=== PATIENT | male | born 1935 | race Caucasian/White ===

== ENCOUNTER 2017-10-10 21:57 | Emergency (ER) | payer MEDICARE, OTHER ==
[2017-10-10] MEDS ORDERED: Doxycycline 100 MG Cap PO ONE (21:58)
[2017-10-10 23:46] VITALS: BP 157/71
[2017-10-11] MEDS ORDERED: Doxycycline 100 MG Cap PO ONE (00:29)
--- NOTE | 2017-10-11 00:35 | EDM.PDOC ---
ED HPI GENERAL MEDICAL PROBLEM - General Chief Complaint: Bite:Animal, Insect Stated Complaint: BIT BY BUG [phone] Time Seen by Provider: 10/11/17 00:20 Source of Information: Reports: Patient History Limitations: Reports: No Limitations - History of Present Illness INITIAL COMMENTS - FREE TEXT/NARRATIVE: This 81 yo male patient reports to the ED with an erythematous area to his right lower back. The patient reports that he removed a wood tick 2 days ago and noticed that he was having some swelling over the area since that time. The patient has not take any medications to relieve symptoms at this time. Onset Date: 10/10/17 Onset Time: 02:00 Duration: Constant, Getting Worse Location: Reports: Back (right lower back) Quality: Reports: Other Severity: Mild Improves with: Reports: None Worsens with: Reports: None Associated Symptoms: Reports: No Other Symptoms - Related Data Allergies Allergy/AdvReac Type Severity Reaction Status Date / Time king juice Allergy Hives Uncoded 10/10/17 23:39 Home Meds: Home Meds amLODIPine [Norvasc] 20 mg PO BEDTIME 10/31/14 [History] atorvaSTATin [Lipitor] 10 mg PO BEDTIME 10/31/14 [History] Aspirin 81 mg PO BEDTIME 05/12/15 [History] Calcium Carb/Mag Oxide/Cu/Zinc [Zwbazbi-Kajvppufc-Umsd Tab] 1 tab PO DAILY 05/12 [History] Furosemide 1 tab PO DAILY 10/10/17 [History] Past Medical History HEENT History: Reports: None Cardiovascular History: Reports: Bypass, High Cholesterol, Hypertension Other Cardiovascular History: heart surghury 1979, and 2003 Respiratory History: Reports: None Gastrointestinal History: Reports: None Genitourinary History: Reports: None Musculoskeletal History: Reports: None Neurological History: Reports: None Psychiatric History: Reports: None Endocrine/Metabolic History: Reports: None Hematologic History: Reports: None Immunologic History: Reports: None Oncologic (Cancer) History: Reports: None Dermatologic History: Reports: None - Infectious Disease History Infectious Disease History: Reports: Chicken Pox - Past Surgical History Head Surgeries/Procedures: Reports: None GI Surgical History: Reports: Appendectomy, Hernia, Inguinal Social & Family History - Family History Family Medical History: Noncontributory - Tobacco Use Smoking Status *Q: Unknown Ever Smoked - Caffeine Use Caffeine Use: Reports: Tea, Other Other Caffeine Use: cocoa - Recreational Drug Use Recreational Drug Use: No - Living Situation & Occupation Living situation: Reports: with Family Occupation: Retired ED ROS GENERAL - Review of Systems Review Of Systems: ROS reveals no pertinent complaints other than HPI. ED EXAM, ANIMAL BITE - Physical Exam Exam: See Below Exam Limited By: No Limitations General Appearance: Alert, WD/WN, No Apparent Distress Eye Exam: Bilateral Eye: EOMI, Normal Inspection, PERRL Ears: Normal External Exam, Normal Canal, Hearing Grossly Normal, Normal TMs Nose: Normal Inspection, Normal Mucosa, No Blood Throat/Mouth: Normal Inspection, Normal Lips, Normal Teeth, Normal Gums, Normal Oropharynx, Normal Voice, No Airway Compromise Head: Atraumatic, Normocephalic Neck: Normal Inspection, Supple, Non-Tender, Full Range of Motion Respiratory/Chest: No Respiratory Distress, Lungs Clear, Normal Breath Sounds, No Accessory Muscle Use, Chest Non-Tender Cardiovascular: Normal Peripheral Pulses, Regular Rate, Rhythm, No Edema, No Gallop, No JVD, No Murmur, No Rub GI/Abdominal: Normal Bowel Sounds, Soft, Non-Tender, No Organomegaly, No Distention, No Abnormal Bruit, No Mass (Male) Exam: Deferred Rectal (Males) Exam: Deferred Back Exam: Full Range of Motion Extremities: Normal Inspection, Normal Range of Motion, Non-Tender, Normal Capillary Refill, No Pedal Edema Neurological: Alert, Oriented, CN II-XII Intact, Normal Cognition, Normal Gait, Normal Reflexes, No Motor/Sensory Deficits Psychiatric: Normal Affect, Normal Mood Skin Exam: Other (The patient has an erythematous area over the area that he removed a wood tick. The erythematous area is approximately 3 cm in diameter in a circular shape around the bite. ) Lymphatic: No Adenopathy Course - Vital Signs Last Recorded V/S: Last Vital Signs Temp 36.9 C 10/10/17 23:42 Pulse 77 10/10/17 23:42 Resp 20 10/10/17 23:42 BP 157/71 H 10/10/17 23:42 Pulse Ox 98 10/10/17 23:42 - Orders/Labs/Meds Orders: Active Orders 24 hr Category Date Time Status Doxycycline [Vibramycin] Med 10/11/17 00:29 Once 100 mg PO ONETIME ONE Departure - Departure Time of Disposition: 00:33 Disposition: Home, Self-Care 01 Condition: Fair Clinical Impression: Tick bite of back Qualifiers: Encounter type: initial encounter Qualified Code(s): S30.860A - Insect bite ( nonvenomous) of lower back and pelvis, initial encounter; W57.XXXA - Bitten or stung by nonvenomous insect and other nonvenomous arthropods, initial encounter - Discharge Information Instructions: Tick Bite Information, Adult, Zfut-ts-Myvc Care Plan Goals: The patient was advised of the examination results during the visit. The patient was given an oral dose of Doxycycline while in the ED. The patient was discharged with a dose of Doxycycline to take in the morning and a script for Doxycycline (100 mg) #28 to take 1 by mouth 2 times per day for 14 days. If the patient has any additional symptoms or concerns, the patient should follow-up with his primary care facility or return to the emergency department. - My Orders Last 24 Hours: My Active Orders 10/11/17 00:29 Doxycycline [Vibramycin] 100 mg PO ONETIME ONE - Assessment/Plan Last 24 Hours: My Active Orders 10/11/17 00:29 Doxycycline [Vibramycin] 100 mg PO ONETIME ONE
[2017-10-11] MEDS ORDERED: Doxycycline 100 MG Cap ONE (00:37)
== END 2017-10-11 00:40 | disposition home or self-care (01) ==
LOC: DL.ED 21:57
DX: S30.860A Insect bite (nonvenomous) of lower back and pelvis, initial encounter (principal); E78.00 Pure hypercholesterolemia, unspecified; I10 Essential (primary) hypertension; Z79.82 Long term (current) use of aspirin; Z79.899 Other long term (current) drug therapy; W57.XXXA Bitten or stung by nonvenomous insect and other nonvenomous arthropods, initial encounter
CPT/HCPCS: 99281; A9270; 99282

== ENCOUNTER 2020-02-17 17:40 | Emergency (ER) | payer MEDICARE, OTHER ==
--- NOTE | 2020-02-17 18:45 | CT ---
PROCEDURE INFORMATION: Exam: CT Head Without Contrast Exam date and time: 02/17/2020 5:56 PM Age: 84 years old Clinical indication: Other: Covid; Additional info: Confusion TECHNIQUE: Imaging protocol: Computed tomography of the head without contrast. Radiation optimization: All CT scans at this facility use at least one of these dose optimization techniques: automated exposure control; mA and/or kV adjustment per patient size (includes targeted exams where dose is matched to clinical indication); or iterative reconstruction. COMPARISON: No relevant prior studies available. FINDINGS: Brain: Age related brain involution is present. No acute intracranial hemorrhage, mass effect, midline shift, or brain herniation. Diffuse subcortical and periventricular white matter hypodensities are most in favor with chronic small vessel disease. Cerebral ventricles: There is ex vacuo ventriculomegaly. Bones/joints: Unremarkable. No acute fracture. Paranasal sinuses: Visualized sinuses are unremarkable. No fluid levels. Mastoid air cells: Visualized mastoid air cells are well aerated. Vasculature: Intracranial atherosclerosis is present. Soft tissues: Unremarkable. IMPRESSION: Negative for acute intracranial pathology.
--- NOTE | 2020-02-17 18:47 | CT ---
PROCEDURE INFORMATION: Exam: CT Chest Without Contrast Exam date and time: 02/17/2020 5:56 PM Age: 84 years old Clinical indication: Other: Covid; Additional info: Covid + with increased confusion TECHNIQUE: Imaging protocol: Computed tomography of the chest without contrast. Radiation optimization: All CT scans at this facility use at least one of these dose optimization techniques: automated exposure control; mA and/or kV adjustment per patient size (includes targeted exams where dose is matched to clinical indication); or iterative reconstruction. COMPARISON: No relevant prior studies available. FINDINGS: Lungs: Moderate amount of patchy peripheral interstitial and ground-glass opacities throughout both lungs. No focal consolidation . Pleural space: Unremarkable. No pneumothorax. No pleural effusion. Heart: Unremarkable. No cardiomegaly. No pericardial effusion. Aorta: Unremarkable. No aortic aneurysm. Lymph nodes: Unremarkable. No enlarged lymph nodes. Bones/joints: Unremarkable. No acute fracture. Soft tissues: Unremarkable. IMPRESSION: Nonspecific patchy interstitial and ground-glass opacities in both lungs, most likely due to atypical viral pneumonia
[2020-02-17 18:55] LABS: ANION GAP 17.2 mEq/L (7-13); CHLORIDE,CL 100 mmol/L (98-107); SODIUM,NA 139 mmol/L (136-145)
[2020-02-17] MEDS ORDERED: Sodium Chloride 0.9% 1,000 ML IV SCH (19:30)
[2020-02-17] MEDS ORDERED: Ondansetron 4 MG/2 ML SDV IVPUSH ONE (19:30)
--- NOTE | 2020-02-17 19:32 | EDM.PDOC ---
ED HPI GENERAL MEDICAL PROBLEM - General Chief Complaint: Neuro Symptoms/Deficits Stated Complaint: DEHYDRATED, CONFUSED, COVID+ OCT. 4TH Time Seen by Provider: 02/17/20 19:27 Source of Information: Reports: Patient, Family History Limitations: Reports: No Limitations - History of Present Illness INITIAL COMMENTS - FREE TEXT/NARRATIVE: pt was admitted to [facility] for 5 days with pos covid. family noticed his mental status hadn't been normal with periods of confusion and unsteadiness and generally not behaving his normal self. also not wanting to eat of drink. also he was told his renal function wasn't good and does see kidney doc in [place]. states all his records are in [place] and he doctors there too. pt denies CP/SOB does have episodic cough. - Related Data Allergies Allergy/AdvReac Type Severity Reaction Status Date / Time alacepril Allergy Swollen Verified 02/17/20 18:41 Tongue king juice Allergy Hives Uncoded 10/10/17 23:39 Home Meds: Home Meds amLODIPine [Norvasc] 20 mg PO BEDTIME 10/31/14 [History] atorvaSTATin [Lipitor] 10 mg PO BEDTIME 10/31/14 [History] Aspirin 81 mg PO BEDTIME 05/12/15 [History] Calcium Carb/Mag Oxide/Cu/Zinc [Omkbfkp-Suryanffy-Uced Tab] 1 tab PO DAILY 05/12/15 [History] Furosemide 1 tab PO DAILY 10/10/17 [History] Past Medical History HEENT History: Reports: None Cardiovascular History: Reports: Bypass, High Cholesterol, Hypertension Other Cardiovascular History: heart surghury 1979, and 2003 Respiratory History: Reports: None Gastrointestinal History: Reports: None Genitourinary History: Reports: Chronic Renal Insuffiency Musculoskeletal History: Reports: None Neurological History: Reports: Other (See Below) Other Neuro History: muscle spasms Psychiatric History: Reports: None Endocrine/Metabolic History: Reports: None Hematologic History: Reports: None Immunologic History: Reports: None Oncologic (Cancer) History: Reports: None Dermatologic History: Reports: None - Infectious Disease History Infectious Disease History: Reports: Chicken Pox - Past Surgical History Head Surgeries/Procedures: Reports: None GI Surgical History: Reports: Appendectomy, Hernia, Inguinal Social & Family History - Family History Family Medical History: Noncontributory - Tobacco Use Tobacco Use Status *Q: Never Tobacco User - Caffeine Use Caffeine Use: Reports: Tea Other Caffeine Use: cocoa - Recreational Drug Use Recreational Drug Use: No - Living Situation & Occupation Living situation: Reports: with Family Occupation: Retired ED ROS GENERAL - Review of Systems Review Of Systems: Comprehensive ROS is negative, except as noted in HPI. ED EXAM, NEURO - Physical Exam Exam: See Below Exam Limited By: No Limitations General Appearance: Alert, WD/WN, Mild Distress, Other (general discomfort) Ears: Hearing Grossly Normal Throat/Mouth: Normal Voice, No Airway Compromise Head Exam: Atraumatic Neck: Non-Tender, Full Range of Motion Respiratory/Chest: No Respiratory Distress, Rhonchi Cardiovascular: Regular Rate, Rhythm GI/Abdominal: Soft, Non-Tender (Male) Exam: Deferred Rectal (Males) Exam: Deferred Neurological: Alert, Normal Mood/Affect, No Motor/Sensory Deficits, Oriented x 3 Psychiatric: Normal Affect, Normal Mood Skin Exam: Warm, Dry, Normal Color Course - Vital Signs Last Recorded V/S: Last Vital Signs Temp 36.8 C 02/17/20 19:39 Pulse 91 02/17/20 19:39 Resp 19 02/17/20 19:39 BP 157/75 H 02/17/20 19:39 Pulse Ox 95 02/17/20 19:39 - Orders/Labs/Meds Orders: Active Orders 24 hr Category Date Time Status EKG Documentation Completion [RC] STAT Care 02/17/20 17:44 Active CULTURE BLOOD [BC] Stat Lab 02/17/20 17:59 Received UA RFX DEBORAH AND CULT IF INDIC [URIN] Urgent Lab 02/17/20 17:44 Ordered Sodium Chloride 0.9% [Normal Saline] 500 ml Med 02/17/20 19:45 Active IV ASDIRECTED Medication Orders Sodium Chloride (Normal Saline) 500 mls @ 200 mls/hr IV ASDIRECTED MIKE Last Admin: 02/17/20 19:39 Dose: 200 mls/hr Documented by: ARTEMIO Labs: Laboratory Tests 02/17/20 02/17/20 02/17/20 Range/Units 17:59 17:59 17:59 WBC 10.0 (5.0-10.0) 10^3/uL RBC 4.77 (4.6-6.2) 10^6/uL Hgb 14.6 (14.0-18.0) g/dL Hct 42.7 (40.0-54.0) % MCV 89.5 (80-100) fL MCH 30.6 (27.0-34.0) pg MCHC 34.2 (33.0-35.0) g/dL Plt Count 265 D (150-450) 10^3/uL Neut % (Auto) 76.2 H (42.2-75.2) % Lymph % (Auto) 10.7 L (20.5-50.1) % [place] % (Auto) 11.7 H (2-8) % Eos % (Auto) 1.2 (1.0-3.0) % Baso % (Auto) 0.2 (0.0-1.0) % Add Manual Diff Yes Neutrophils % (Manual) 83 H (42-75) % Band Neutrophils % 0 % Lymphocytes % (Manual) 7 L (20-50) % Atypical Lymphs % 0 % Monocytes % (Manual) 7 (2-8) % Eosinophils % (Manual) 3 (1-3) % PT (9.0-12.0) SEC INR (0.9-1.2) Sodium 139 (136-145) mmol/L Potassium 4.2 (3.5-5.1) mmol/L Chloride 100 (98-107) mmol/L Carbon Dioxide 26 (21-32) mmol/L Anion Gap 17.2 H (7-13) mEq/L BUN 45 H (7-18) mg/dL Creatinine 2.67 H (0.70-1.30) mg/dL Est Cr Clr Drug Dosing 20.60 mL/min Estimated GFR (MDRD) 23 BUN/Creatinine Ratio 16.9 (No establ ref range) Glucose 138 H (74-99) mg/dL Lactic Acid 1.4 (0.4-2.0) mmol/L Calcium 9.0 (8.5-10.1) mg/dL Total Bilirubin 0.9 (0.2-1.0) mg/dL AST 37 (15-37) U/L ALT 31 (16-63) U/L Alkaline Phosphatase 97 (46-116) U/L Troponin I < 0.017 (0.000-0.056) ng/mL Total Protein 7.4 (6.4-8.2) g/dL Albumin 3.5 (3.4-5.0) g/dL Globulin 3.9 Albumin/Globulin Ratio 0.9 10/16/20 Range/Units 17:59 WBC (5.0-10.0) 10^3/uL RBC (4.6-6.2) 10^6/uL Hgb (14.0-18.0) g/dL Hct (40.0-54.0) % MCV (80-100) fL MCH (27.0-34.0) pg MCHC (33.0-35.0) g/dL Plt Count (150-450) 10^3/uL Neut % (Auto) (42.2-75.2) % Lymph % (Auto) (20.5-50.1) % [place] % (Auto) (2-8) % Eos % (Auto) (1.0-3.0) % Baso % (Auto) (0.0-1.0) % Add Manual Diff Neutrophils % (Manual) (42-75) % Band Neutrophils % % Lymphocytes % (Manual) (20-50) % Atypical Lymphs % % Monocytes % (Manual) (2-8) % Eosinophils % (Manual) (1-3) % PT 10.7 (9.0-12.0) SEC INR 1.1 (0.9-1.2) Sodium (136-145) mmol/L Potassium (3.5-5.1) mmol/L Chloride (98-107) mmol/L Carbon Dioxide (21-32) mmol/L Anion Gap (7-13) mEq/L BUN (7-18) mg/dL Creatinine (0.70-1.30) mg/dL Est Cr Clr Drug Dosing mL/min Estimated GFR (MDRD) BUN/Creatinine Ratio (No establ ref range) Glucose (74-99) mg/dL Lactic Acid (0.4-2.0) mmol/L Calcium (8.5-10.1) mg/dL Total Bilirubin (0.2-1.0) mg/dL AST (15-37) U/L ALT (16-63) U/L Alkaline Phosphatase (46-116) U/L Troponin I (0.000-0.056) ng/mL Total Protein (6.4-8.2) g/dL Albumin (3.4-5.0) g/dL Globulin Albumin/Globulin Ratio Meds: Medications Generic Name Dose Route Start Last Admin Trade Name Freq PRN Reason Stop Dose Admin Sodium Chloride 500 mls @ 200 mls/hr 02/17/20 19:45 02/17/20 19:39 Normal Saline IV 200 mls/hr ASDIRECTED MIKE Administration Discontinued Medications Generic Name Dose Route Start Last Admin Trade Name Freq PRN Reason Stop Dose Admin Sodium Chloride 1,000 mls @ 200 mls/hr 02/17/20 19:30 Normal Saline IV ASDIRECTED MIKE Ondansetron HCl 4 mg 02/17/20 19:30 02/17/20 19:37 Zofran IVPUSH 02/17/20 19:31 4 mg ONETIME ONE Administration - Re-Assessments/Exams Free Text/Narrative Re-Assessment/Exam: 02/17/20 19:[address] Abbott @ [facility] who kindly accepted pt. Departure - Departure Time of Disposition: 19:50 Disposition: DC/Tfer to Acute Hospital 02 Condition: Fair Clinical Impression: Pneumonia due to COVID-19 virus, Confusion, Renal insufficiency syndrome - Discharge Information Forms: Interfacility Transfer EMTALA Sepsis Event Note (ED) - Evaluation Sepsis Screening Result: No Definite Risk - Focused Exam Vital Signs: Vital Signs Temp Pulse Resp BP Pulse Ox 02/17/20 19:39 36.8 C 91 19 157/75 H 95 02/17/20 18:02 37.1 C 88 18 133/70 96 - My Orders Last 24 Hours: My Active Orders 02/17/20 19:45 Sodium Chloride 0.9% [Normal Saline] 500 ml IV ASDIRECTED - Assessment/Plan Last 24 Hours: My Active Orders 02/17/20 19:45 Sodium Chloride 0.9% [Normal Saline] 500 ml IV ASDIRECTED
[2020-02-17 19:40] VITALS: BP 157/75; PULSE 91
[2020-02-17] MEDS ORDERED: Sodium Chloride 0.9% 500 ML IV SCH (19:45)
== END 2020-02-17 20:38 ==
LOC: DL.ED 17:40
DX: U07.1 COVID-19 (principal); J12.89 Other viral pneumonia; R41.0 Disorientation, unspecified; E78.00 Pure hypercholesterolemia, unspecified; I12.9 Hypertensive chronic kidney disease with stage 1 through stage 4 chronic kidney disease, or unspecified chronic kidney disease; N18.9 Chronic kidney disease, unspecified; Z91.018 Allergy to other foods; Z79.82 Long term (current) use of aspirin; Z79.899 Other long term (current) drug therapy
CPT/HCPCS: 36415; 70450; 71250; 80053; 83605; 84484; 85025; 85610; 87040; 93005; 96374; 99285; J2405; J7040; 99284

== ENCOUNTER 2022-06-02 19:45 | Observation (INO) | payer MEDICARE, OTHER ==
[2022-06-02 20:32] LABS: ANION GAP 12.6 mEq/L (7-13)
[2022-06-02] MEDS ORDERED: Pantoprazole 40 MG Vial IVPUSH ONE (20:36)
[2022-06-02 21:10] LABS: CORONAVIRUS COVID-19 NAA NEGATIVE (NEGATIVE)
[2022-06-02] MEDS: Pantoprazole 40 MG in Sodium Chloride 0.9% 100 ML IV SCH (22:02)
[2022-06-02] MEDS ORDERED: Albuterol/Ipratropium 3.0-0.5 MG/3 ML Neb Soln NEB PRN (22:35)
[2022-06-02] MEDS ORDERED: Acetaminophen/HYDROcodone 325-5 MG Tab PO PRN (22:35)
[2022-06-02] MEDS ORDERED: Ondansetron 4 MG/2 ML SDV IVPUSH PRN (22:35)
[2022-06-02] MEDS ORDERED: Acetaminophen 325 MG Tab PO PRN (22:35)
[2022-06-02] MEDS ORDERED: Polyethylene Glycol 3350 Powder 17 GM Packet PO PRN (22:35)
[2022-06-02] MEDS ORDERED: HYDROmorphone 0.5 MG/0.5 ML Syringe IVPUSH PRN (22:35)
[2022-06-02] MEDS ORDERED: Magnesium Hydroxide 400 MG/5 ML Susp 30 ML Cup PO PRN (22:35)
[2022-06-02] MEDS ORDERED: Sodium Chloride 0.9% 10 ML Syringe FLUSH PRN (22:35)
[2022-06-02] MEDS ORDERED: Bisacodyl 5 MG Tab PO PRN (22:35)
[2022-06-03] MEDS: Pantoprazole 40 MG in Sodium Chloride 0.9% 100 ML IV SCH (02:49)
[2022-06-03 05:32] LABS: ANION GAP 13.1 mEq/L (7-13)
[2022-06-03] MEDS: Sucralfate 1 GM Tab PO SCH ×4 (07:36→21:13)
[2022-06-03] MEDS: Sodium Chloride 0.9% 10 ML Syringe FLUSH SCH ×2 (10:13→21:33)
[2022-06-03] MEDS: Pantoprazole 40 MG Vial IVPUSH SCH ×2 (10:13→21:13)
[2022-06-04] MEDS: Sucralfate 1 GM Tab PO SCH ×2 (06:49→11:45)
[2022-06-04] MEDS: Sodium Chloride 0.9% 10 ML Syringe FLUSH SCH (09:30)
[2022-06-04] MEDS: Pantoprazole 40 MG Vial IVPUSH SCH (09:30)
[2022-06-04 12:02] VITALS: BP 138/61; PULSE 71
== END 2022-06-04 13:20 | disposition home or self-care (01) ==
LOC: DL.ED 19:45 → DL.MS 22:06 → DL.ED 22:27
PROVIDERS: ADMIT Internal Medicine; ATTEND Internal Medicine
DX: K92.2 Gastrointestinal hemorrhage, unspecified (principal); E78.5 Hyperlipidemia, unspecified; I12.9 Hypertensive chronic kidney disease with stage 1 through stage 4 chronic kidney disease, or unspecified chronic kidney disease; N18.4 Chronic kidney disease, stage 4 (severe); G20 Parkinson's disease; Z79.899 Other long term (current) drug therapy; Z95.1 Presence of aortocoronary bypass graft; Z88.6 Allergy status to analgesic agent; Z91.018 Allergy to other foods; Z98.890 Other specified postprocedural states; Z79.82 Long term (current) use of aspirin; Z20.822 Contact with and (suspected) exposure to COVID-19
CPT/HCPCS: 0240U; 36415; 80048; 80053; 81003; 82272; 83540; 83550; 83605; 83735; 85014; 85018; 85025; 85045; 85610; 87040; 96365; 96366; 96375; 96376; 97161-GP; 97165-GO; 99284; 99285-25; A9270-GY; C9113; G0378; J1170; J3490

== ENCOUNTER 2024-04-12 19:23 | Emergency (ER) | payer MEDICARE, OTHER ==
[2024-04-12 19:36] VITALS: BP 149/68; PULSE 63
[2024-04-12] MEDS: Bacitracin Oint 1 GM U/D Packet TOP ONE (19:48)
[2024-04-12] MEDS: Diphtheria,Pertussis(Acell),Tetanus Vaccine 0.5 ML Syringe IM ONE (20:16)
== END 2024-04-12 21:25 | disposition home or self-care (01) ==
LOC: DL.ED 19:23
DX: S00.03XA Contusion of scalp, initial encounter (principal); I12.9 Hypertensive chronic kidney disease with stage 1 through stage 4 chronic kidney disease, or unspecified chronic kidney disease; N18.9 Chronic kidney disease, unspecified; E78.00 Pure hypercholesterolemia, unspecified; Z90.49 Acquired absence of other specified parts of digestive tract; Z88.1 Allergy status to other antibiotic agents; Z91.018 Allergy to other foods; Z79.899 Other long term (current) drug therapy; W01.198A Fall on same level from slipping, tripping and stumbling with subsequent striking against other object, initial encounter; Z23 Encounter for immunization
CPT/HCPCS: 70450; 72125; 90471; 90715; 99283; 99283-25; A9270-GY